=== PATIENT | male | born 1990 | race Caucasian/White ===

== ENCOUNTER 2016-12-09 09:12 | Emergency (ER) | payer OTHER ==
[2016-12-09] MEDS ORDERED: NS 0.9% 1000 ML* 1,000 ML IV ONE ×2 (09:30→12:39)
[2016-12-09] MEDS ORDERED: Ondansetron INJ* 2 MG/ML VIAL IV ONE ×2 (10:11→12:48)
[2016-12-09] MEDS ORDERED: Ketorolac INJ* 30 MG/ML 1 ML VIAL IV PUSH ONE (10:12)
--- NOTE | 2016-12-09 10:43 | ED ---
Abdominal Pain/Male - HPI Summary HPI Summary: 26 male presents with complaints of RLQ and RUQ abdominal pain that has been ongoing for the past couple of weeks however has really worsened over the past 3 days. Patient states the pain in RUQ is intermittent and sharp only lasting a few seconds. RLQ pain is a dull ache that is worse with certain position/ movement. Also complains of bright red blood in stool x 2 episodes. States he had some bright red blood when he wiped last night however a significant amount this morning 12/09/16 with bowel movement. States he has been having yellow mucus like stools for a while however just changed to yellow/green mucus-like with blood this am. Brought sample to [facility] who stated he should come to ED. Has not noticed certain foods making his symptoms worse. Has not eaten today. Used to have a high fast food diet ~ 1 year ago however has been eating healthy foods for the past year. Does have nausea has not vomited. Denies chest pain, difficulty breathing and radiation of pain. Has not recently had diarrhea or constipation. Patient denies taking any medications for the pain. Denies PMHx besides depression/anxiety which is currently is taking medication for. Denies urinary and genitalia symptoms. Denies fever however admits to chills. FHx of brother appendectomy and cousin cholecystectomy. PMHx significant for GERD/ Ulcer which he had an endoscopy for years ago. - History of Current Complaint Chief Complaint: EDAbdPain Stated Complaint: BLOOD IN STOOL/ABD PAIN/SENT BY [facility] Time Seen by Provider: 12/09/16 09:30 Hx Obtained From: Patient Onset/Duration: Gradual Onset, Lasting Days, Still Present, Worse Since Timing: Constant Severity Initially: Mild Severity Currently: Moderate Pain Intensity: 6 Pain Scale Used: 0-10 Numeric Location: Discrete At: RUQ, Discrete At: RLQ Radiates: No Character: Sharp - RUQ, Dull - ache RLQ, Cramping - RUQ intermittent Aggravating Factor(s): Movement Alleviating Factor(s): Nothing, Position Associated Signs And Symptoms: Positive: Blood in Stool, Nausea - Risk Factors Testicular Torsion: Negative Cardiac Risk Factors: Negative - Allergies/Home Medications Allergies/Adverse Reactions: Allergies Allergy/AdvReac Type Severity Reaction Status Date / Time Erythromycin [From Pediazole] Allergy Hives Verified 12/09/16 12:47 Sulfisoxazole Allergy Hives Verified 12/09/16 12:47 [From Pediazole] Home Medications: Home Medications ALPRAZolam TAB* [Xanax TAB*] 0.5 mg PO TID PRN 12/09/16 [History Confirmed 12/09] Bupropion XL* [Wellbutrin XL *] 150 mg PO DAILY 12/09/16 [History Confirmed ] Omeprazole CAP* [Prilosec CAP* 20 MG] 40 mg PO DAILY 12/09/16 [History Confirmed 12/09/16] PMH/Surg Hx/FS Hx/Imm Hx Endocrine/Hematology History: Denies: Hx Diabetes, Hx Thyroid Disease Cardiovascular History: Denies: Hx Hypertension, Hx Pacemaker/ICD, Other Cardiovascular Problems/ Disorders Respiratory History: Reports: Hx Asthma Denies: Hx Chronic Obstructive Pulmonary Disease (COPD) GI History: Reports: Hx Gastroesophageal Reflux Disease, Hx Ulcer - since jun 2013 Sensory History: Denies: Hx Hearing Aid Psychiatric History: Denies: Hx Panic Disorder - Surgical History Surgery Procedure, Year, and Place: none - Immunization History Date of Tetanus Vaccine: 2013 Date of Influenza Vaccine: none Immunizations Up to Date: Yes Infectious Disease History: Denies: Hx Clostridium Difficile, Hx Hepatitis, Hx Human Immunodeficiency Virus (HIV), Hx of Known/Suspected MRSA, Hx Shingles, Hx Tuberculosis, History Other Infectious Disease, Traveled Outside the [place] in Last 30 Days - Family History Known Family History: Positive: Hypertension Negative: Cardiac Disease, Diabetes - Social History Alcohol Use: None Alcohol Amount: none since May 17 2013 Substance Use Type: Reports: None Smoking Status (MU): Light Every Day Tobacco Smoker Type: Cigarettes, Smokeless Tobacco Amount Used/How Often: 1/2 PPD Review of Systems Positive: Chills Cardiovascular: Negative Respiratory: Negative Positive: Abdominal Pain, Nausea, Other - blood in stool Musculoskeletal: Negative Skin: Negative Neurological: Negative All Other Systems Reviewed And Are Negative: Yes Physical Exam Triage Information Reviewed: Yes Vital Signs On Initial Exam: Initial Vitals Temp Pulse Resp BP Pulse Ox 98.5 F 88 20 149/93 100 12/09/16 09:15 12/09/16 09:15 12/09/16 09:15 12/09/16 09:15 12/09/16 09:15 elevated BP noted. will re-check, taken upon arrival. patient also in pain and anxious. afebrile. Vital Signs Reviewed: Yes Appearance: Positive: No Pain Distress - unless moving or on palpation, then mild., Well-Nourished, Ill-Appearing - jaundice Skin: Positive: Warm, Skin Color Reflects Adequate Perfusion, Dry, Jaundiced. Negative: Cold, Numb, Soft, Mass @ Head/Face: Positive: Normal Head/Face Inspection Eyes: Positive: Normal, EOMI, EDUARDO, Conjunctiva Clear, Other: - no jaundice ENT: Positive: Normal ENT inspection, Hearing grossly normal, Pharynx normal, TMs normal - cerumen in left EAC. Negative: Muffled/hoarse voice Neck: Positive: Supple, Nontender, No Lymphadenopathy Respiratory/Lung Sounds: Positive: Clear to Auscultation, Breath Sounds Present. Negative: Rales, Rhonchi, Wheezes Cardiovascular: Positive: Normal, RRR, Pulses are Symmetrical in both Upper and Lower Extremities. Negative: Murmur, Rub Abdomen Description: Positive: No Organomegaly, Soft, Guarding, McBurney's Point Tenderness, Peritoneal Signs, Other: - positive psoas, rebound negative rovsing and murphys. skin exam on abdomen normal besides slightly yellow/ jaundice appearing. no previous surgeries or scars. tender on palpation both soft and deep on RLQ RUQ, more on RLQ. Left side and epigastric area non tender.. Negative: CVA Tenderness (R), CVA Tenderness (L), Distended, Pulsatile Mass Bowel Sounds: Positive: Present, Hypoactive Male Genital Exam: Positive: normal genitalia - per patient, deferred exam rectal done by Dr Rangel: normal, other - rectal exam and stool occult completed by Dr Rangel due to patient preference Musculoskeletal: Positive: Normal, Strength/ROM Intact Neurological: Positive: Normal, Sensory/Motor Intact, Alert, Oriented to Person Place, Time Psychiatric: Positive: Affect/Mood Appropriate, Anxious Diagnostics - Vital Signs Vital Signs Temp Pulse Resp BP Pulse Ox 12/09/16 09:15 98.5 F 88 20 149/93 100 - Laboratory Result Diagrams: 12/09/16 10:50 12/09/16 10:50 Lab Statement: Any lab studies that have been ordered have been reviewed, and results considered in the medical decision making process. - CT abd/pelvis CT Interpretation: No Acute Changes - NO EVIDENCE FOR ACUTE INTRA-ABDOMINAL ABNORMALITY. CT Interpretation Completed By: Radiologist - Ultrasound No standard instances Ultrasound Interpretation: No Acute Changes - gallbladder and appendix ultrasound: Appendix is not visualized. GALLBLADDER POLYP. NO BILIARY DUCT DILATATION IS NOTED. Ultrasound Interpretation Completed By: Radiologist Re-Evaluation - Re-Evaluation First Eval Re-Evaluation Time: 12:45 Change: Unchanged - pain was relieved for a short time with toradol however was returning and feels worse after having last bowel movement, will give additional pain management Second Eval Re-Evaluation Time: 15:30 Change: Unchanged - patient's pain was better however is starting to return. given one more 1mg dose of morphine. aware of lab results and imaging findings. spoke with Dr Josesito PATEL. Patient is in agreement and aware of findings. Ready to be d/c. Abdominal Pain Fem Course/Dx - Course Course Of Treatment: labs obtained. gallbladder and appendix ultrasound obtained. due to no significant findings and high suscpicion CT abdomen pelvis obtained. Patient's pain never went away completely however did improve with pain management. Given fluids. Continued to have abnormal bowel movement texture and colors throughout ED stay. Stool culture and occult blood obtained. Pending results. Occult blood negative. Due to unremarkable lab results, imaging findings unremarkable and negative however patient did still have some pain spoke with Dr Josesito PATEL who stated no emergent concern or etiology at this time. Pain management, fluids, rest and follow up in office. No sign or finding requiring further treatment at this time. Patient educated on possible diagnoses/etiologies. Comforted. Aware of worsening signs and symptoms to watch out for. Return if occur. Follow up pcp. - Diagnoses Differential Diagnosis/HQI/PQRI: Appendicitis, Constipation, Gall Bladder Disease, Ischemic Bowel, Pancreatitis, Peptic Ulcer Disease, Urinary Tract Infection, Other Provider Diagnoses: Abdominal pain - Provider Notifications Discussed Care Of Patient With: Dr Juan Carlos Murcia Time Discussed With Above Provider: 16:10 Instructed by Provider To: Have Pt Call For Appt. Discharge - Discharge Plan Condition: Stable Disposition: HOME Prescriptions: HYDROcodone/ACETAMIN 5-325 MG* [[place] 5-325 TAB*] 1 tab PO Q4H PRN #20 tab MDD 3 PRN Reason: Pain Patient Education Materials: Hydrocodone/Acetaminophen (By mouth), Acute Abdominal Pain (ED) Referrals: Carol Jackson NP [Primary Care Provider] - Additional Instructions: Take pain medication as directed only as needed. If symptoms worsen or new symptoms develop as we discussed such as increased blood, worsening pain, fever/chills, generalized feeling of illness return to ED immediately. Drink plenty of fluids, rest and follow up with GI either yours or the one affiliated with us below by the end of this week.
[2016-12-09 11:07] LABS: Hematocrit 50 % (42-52); Mean Corpuscular HGB Conc 32 g/dl (31-36); Mean Corpuscular Hemoglobin 28 pg (27-31); Mean Corpuscular Volume 86 fL (80-94); Mean Platelet Volume 9 um3 (7.4-10.4); Red Blood Count 5.82 10^6/ul (4.0-5.4); Red Cell Distribution Width 13 % (10.5-15); White Blood Count 7.6 10^3/ul (3.5-10.8)
[2016-12-09 11:23] LABS: Albumin 4.7 g/dL (3.2-5.2); BUN/Creatinine Ratio 15.3 (8-20); C Reactive Protein 2.77 mg/L (< 5.00); Calcium 9.8 mg/dL (8.6-10.3); EGFR African American 96.7 (>60); EGFR Non-African American 75.2 (>60); Globulin 2.9 g/dL (2-4); Potassium 4.1 mmol/L (3.5-5.0); Total Protein 7.6 g/dL (6.4-8.9)
--- NOTE | 2016-12-09 12:07 | RAD ---
Indication: Right upper quadrant pain. Real-time sonography of the right upper quadrant was performed. Liver is normal in size. No focal lesions or intrahepatic ductal dilatation is noted. The common duct measures 4 mm. The gallbladder demonstrates no definite gallstone. No pericholecystic fluid or wall thickening is noted. Likely gallbladder polyp is noted measuring 4 mm. Common duct measures 4 mm. The pancreas demonstrates no mass or pancreatic duct dilatation. Aorta and inferior vena cava are unremarkable. IMPRESSION: GALLBLADDER POLYP. NO BILIARY DUCT DILATATION IS NOTED.
--- NOTE | 2016-12-09 12:08 | RAD ---
Indication: Right lower quadrant pain. Graded compression sonography of the right lower quadrant was performed utilizing a high frequency linear transducer. There is no evidence of tubular fluid-filled structure to suggest appendicitis. The appendix is not visualized. IMPRESSION: Appendix is not visualized.
[2016-12-09] MEDS ORDERED: Iohexol 300* (CONTRAST) 10 ML SDV IV ONE (12:46)
[2016-12-09] MEDS ORDERED: Morphine INJ* 2 MG/ML 1 ML SYRINGE IV ONE ×2 (12:48→15:43)
[2016-12-09 14:37] LABS: Urine Bilirubin Negative (Negative); Urine Glucose Negative (Negative); Urine Nitrite Negative (Negative)
--- NOTE | 2016-12-09 15:15 | RAD ---
INDICATION: Right lower quadrant abdominal pain. COMPARISON: Comparison is made with a prior CT of the abdomen and pelvis from July 05, 2013. TECHNIQUE: A CT scan of the abdomen and pelvis was performed with intravenous and oral contrast following intravenous injection of 105 ml of Omnipaque 300 nonionic contrast. Contiguous axial sections were obtained from the lung bases through the symphysis pubis. Images were reconstructed in the coronal and sagittal planes. FINDINGS: The lung bases are clear. No pleural effusion is present. The liver and spleen are within normal limits in size without significant focal abnormality. No calcified gallstones or gallbladder wall thickening is seen. The pancreas appears to be within normal limits in size. The kidneys and adrenal glands are normal in size. No hydronephrosis is seen. No significant focal renal abnormality is seen. The aorta is normal in caliber and demonstrates homogeneous contrast opacification. No significant enlarged retroperitoneal lymph nodes are seen. The stomach, small and large bowel appear nondistended. The appendix is within normal limits. There is no evidence for diverticulitis or colitis. No free intraperitoneal air or fluid is seen. No significant focal osseous abnormality is seen. IMPRESSION: NO EVIDENCE FOR ACUTE INTRA-ABDOMINAL ABNORMALITY.
[2016-12-09 17:27] VITALS: BP 138/85
== END 2016-12-09 17:27 | disposition home or self-care (01) ==
LOC: ED 09:12
DX: R10.11 Right upper quadrant pain (principal); R11.0 Nausea; K92.1 Melena; F17.210 Nicotine dependence, cigarettes, uncomplicated
CPT/HCPCS: 36415; 74177; 76705; 80053; 81003; 82272; 83605; 83690; 85025; 86140; 87045; 87046; 87899; 99284; J1885; J2270; J2405; Q9967

== ENCOUNTER 2019-05-31 13:22 | Emergency (ER) | payer BC ==
--- OUTSIDE RECORDS SUMMARY | 2019-05-31 13:42 | XMS REPORT | Summary of Care ---
:1990 Author Organization [facility] Address [address] [address] Care Team Providers Name Role Phone Kayce Colon MD Primary Care Provider Reason for Referral Refer to Department Only (Routine) Status Reason Specialty Diagnoses / Referred By Referred To Procedures Contact Contact Pending Review Diagnoses Epigastric pain Sabine Ken NP [address] [address] Reason for Visit Reason Comments Chest Pain Pt. complaining of continued epigastric pain. Encounter Details Date Type Department Care Team Description 05/16/2019 Office Visit [place] [facility] Epigastric pain Gastroenterology/Hepa Sabine Robert NP (Primary Dx) tology 1 [facility] [address] [facility] [address] [address] [place], [place] [id number] Allergies Active Allergy Reactions Severity Noted Date Comments Erythromycin Respiratory Reaction 06/03/2016 Pediazole Respiratory Reaction 06/03/2016 documented as of this encounter (statuses as of 05/16/2019) Medications Medication Sig Dispensed Refills Start Date End Date Status ondansetron (ZOFRAN) 4 Take 4 mg by mouth 18 Tab 0 09/26/2016 Active MG Oral EVERY EIGHT HOURS TabIndications: NEEDED for Tonsillar hypertrophy nausea. Acetaminophen (TYLENOL Take 500 mg by 0 Active EXTRA STRENGTH mouth EVERY FOUR PO)Indications: Pain HOURS NEEDED. Indications: Pain ALBUTEROL SULFATE Take 2 Puffs by 0 Active INIndications: Dyspnea inhalation EVERY FOUR HOURS NEEDED. Indications: Difficulty Breathing amLodipine (NORVASC) 5 Take 1 Tab by 30 Tab 11 11/29/2018 Active MG Oral Tab mouth DAILY. Psyllium (METAMUCIL Take 1 Packet by 30 Each 3 01/13/2019 Active FIBER) 51.7 % Oral mouth DAILY. PackIndications: Diarrhea, unspecified type buPROPion XL Take 1 Tab by 30 Tab 11 01/24/2019 Active (WELLBUTRIN XL) 150 MG mouth DAILY. Oral TABLET SR 24 HR 24 hour tabletIndications: Anxiety and depression methocarbamol Take 1 Tab by 60 Tab 0 02/17/2019 Active (ROBAXIN) 500 MG Oral mouth THREE TIMES Tab DAILY. pantoprazole TAKE 1 TABLET BY 90 Tab 3 04/20/2019 Active (PROTONIX) 40 MG Oral MOUTH EVERY DAY Tab EC ALPRAZolam (XANAX) 0.5 Take 1 Tab by 90 Tab 0 04/25/2019 Active MG Oral mouth THREE TIMES TabIndications: DAILY NEEDED Anxiety and depression (anxiety). Max Daily Amount: 1.5 mg. Fill after 08/24/18 hyoscyamine (LEVBID) Take 0.375 mg by 60 Tab 0 05/16/2019 Active 0.375 MG Oral TABLET mouth EVERY TWELVE SR 12 HR HOURS. documented as of this encounter (statuses as of 05/16/2019) Active Problems Problem Noted Date Periumbilical abdominal pain 02/06/2019 Overview: Added automatically from request for surgery [id number] Umbilical hernia without obstruction and without gangrene 02/06/2019 Overview: Added automatically from request for surgery [id number] Upper abdominal pain 11/09/2018 Overview: Added automatically from request for surgery [id number] Symptomatic cholelithiasis 11/09/2018 Overview: Added automatically from request for surgery [id number] Benign hypertension 08/12/2018 Hx of Clostridium difficile infection 11/04/2017 Anxiety disorder 08/14/2016 Arthralgia of lower leg 05/26/2016 Gastric ulcer 05/17/2014 GERD (gastroesophageal reflux disease) documented as of this encounter (statuses as of 05/16/2019) Resolved Problems Problem Noted Date Resolved Date Sprain of ankle 05/26/2016 09/27/2017 Arthralgia of foot 05/26/2016 09/27/2017 documented as of this encounter (statuses as of 05/16/2019) Social History Tobacco Use Types Packs/Day Years Used Date Current Every Day Smoker Cigarettes 0.25 8 Smokeless Tobacco: Current User Chew Alcohol Use Drinks/Week oz/Week Comments No Social Isolation Answer Date Recorded In a typical week, how many times do you talk on the phone Once a week 2018 with family, friends, or neighbors? How often do you get together with friends or relatives? Once a week 2018 How often do you attend congregation or tenriism services? Never 08/03/2018 Do you belong to any clubs or organizations such as congregation No 08/03/2018 groups, unions, fraternal or athletic groups, or school groups? How often do you attend meetings of the clubs or Never 08/03/2018 organizations you belong to? Are you now , , , , never 08/03/2018 or living with a partner? Physical Activity Answer Date Recorded On average, how many days per week do you engage in moderate to 0 days 2018 strenuous exercise (like walking fast, running, jogging, dancing, swimming, biking, or other activities that cause a light or heavy sweat)? On average, how many minutes do you engage in exercise at this 0 min 2018 level? Stress Answer Date Recorded Do you feel stress - tense, restless, nervous, or anxious, or Very much 08/03 unable to sleep at night because your mind is troubled all the time - these days? Education Answer Date Recorded What is the highest level of school you have completed or 12th grade 2018 the highest degree you have received? Financial Resource Strain Answer Date Recorded How hard is it for you to pay for the very basics like Not hard at all 2018 food, housing, medical care, and heating? Intimate Partner Violence Answer Date Recorded Within the last year, have you been afraid of your partner or No 08/03/2018 ex-partner? Within the last year, have you been humiliated or emotionally No 08/03/2018 abused in other ways by your partner or ex-partner? Within the last year, have you been kicked, hit, slapped, or No 08/03/2018 otherwise physically hurt by your partner or ex-partner? Within the last year, have you been raped or forced to have any No 08/03/2018 kind of sexual activity by your partner or ex-partner? Transportation Needs Answer Date Recorded In the past 12 months, has lack of transportation kept you from No 08/03/2018 medical appointments or from getting medications? In the past 12 months, has lack of transportation kept you from No 08/03/2018 meetings, work, or getting things needed for daily living? Sex Assigned at Date Recorded Not on file Job Start Date Occupation Industry Not on file Not on file Not on file Travel History Travel Start Travel End No recent travel history available. documented as of this encounter Last Filed Vital Signs Vital Sign Reading Time Taken Comments Blood Pressure 128/90 05/16/2019 12:38 PM EST Pulse 66 05/16/2019 12:38 PM EST Temperature 36.7 05/16/2019 12:38 PM EST C (98 F) Respiratory Rate - - Oxygen Saturation - - Inhaled Oxygen Concentration - - Weight 79.4 kg (175 lb) 05/16/2019 12:38 PM EST Height 177.8 cm (5' 10") 05/16/2019 12:38 PM EST Body Mass Index 25.11 05/16/2019 12:38 PM EST documented in this encounter Patient Instructions Patient InstructionsSabine Ken NP - 05/16/2019 12:40 PM EST1. Labs today 2. Will trial an antispasmodic as discussed 3. Referral placed, will send this to [facility], expect them to contact you with scheduling 4. Follow up based on the above Thank you for choosing the [facility] for your needs today! -Sabine Ken N.P. , Please call if you need to cancel or change your appt. time. Thank you for choosing [facility] for your health care needs, and for consulting with [facility] today. You may receive a survey following this visit, or after an upcoming hospital stay. As easy as it is to feel overloaded with surveys, we are required to send them out randomly and they do provide important feedback so that we may serve your needs in the best way. Please do take the few minutes required to complete the survey if you receive one. We get them too, after seeing the doctor, and they only take a few minutes to complete. documented in this encounter Progress Notes Sabine Ken NP - 05/16/2019 12:40 PM EST PATIENT: Jaspal De La Rosa : 1990 DATE OF SERVICE: 05/16/2019 REFERRING PRACTITIONER: Self-Referred PRIMARY CARE PROVIDER: Kayce Colon CHIEF COMPLAINT: Chief Complaint Patient presents with Chest Pain Pt. complaining of continued epigastric pain. Subjective HISTORY OF PRESENT ILLNESS: Jaspal De La Rosa is a 28-y.o. male who presents for a follow-up with abdominal pain. He reports periumbilical and epigastric pain which he describes as a dull ache to a "squeeze" on an off over the past several months, after his cholecystectomy 11/10/2018. Has known GERD, doing well on Pantoprazole once daily. He had an EGD 12/[address] abd 01/10/2019 which was without any acute findings. Lab Results Component Value Date NA 140 03/16/2019 K 3.6 03/16/2019 CL 102 03/16/2019 CO2 25 03/16/2019 GLUCOSE 120 (H) 03/16/2019 BUN 11 03/16/2019 CREATININE 1.1 03/16/2019 CALCIUM 10.0 03/16/2019 TP 8.0 03/16/2019 ALBUMIN 4.6 03/16/2019 AST 24 03/16/2019 ALT 27 03/16/2019 ALK 62 03/16/2019 TBILI 0.9 03/16/2019 EGFR >60 03/16/2019 Has found relief from pain medications. Denies heartburn, dysphagia, fatigue, nausea, vomiting, melena, hamatemesis, hematochezia, constipation, diarrhea, jaundice, fevers, chills, night sweats, weight loss, easy bruising, chest pain, shortness of breath, dysuria, hematuria , pyuria, joint pains, acholic stools, dark urine or systemic pruritis. Past Medical History: Diagnosis Date Anxiety dx age 20 Asthma as child Depression Gastric ulcer 2014 GERD (gastroesophageal reflux disease) Hx of Clostridium difficile infection Hypertension Mental disorder severe anxiety with panic attacks Past Surgical History: Procedure Laterality Date EGD 2014 HERNIORRHAPHY, UMBILICAL N/A 02/08/2019 Procedure: iINCISIONAL HERNIA REPAIR WITH MESH; Surgeon: Jose Ramon Barahona MD; Location: [facility] MAIN OR LAPAROSCOPIC CHOLECYSTECTOMY N/A 11/10/2018 Procedure: LAPAROSCOPIC CHOLECYSTECTOMY; Surgeon: Fernando Collado MD; Location: MAIN OR TX EXCIS SPERMATOCELE Right 10/19/2017 Procedure: SPERMATOCELECTOMY; Surgeon: Lon Smith MD; Location : MAIN OR Family History Problem Relation Age of Onset Thyroid Mother Arthritis Mother No Known Problems Sister GI Brother Psychiatry Brother No Known Problems Brother No Known Problems Brother Current Outpatient Medications Medication Sig Acetaminophen (TYLENOL EXTRA STRENGTH PO) Take 500 mg by mouth EVERY FOUR HOURS NEEDED. Indications: Pain ALBUTEROL SULFATE IN Take 2 Puffs by inhalation EVERY FOUR HOURS NEEDED. Indications: Difficulty Breathing ALPRAZolam (XANAX) 0.5 MG Oral Tab Take 1 Tab by mouth THREE TIMES DAILY NEEDED (anxiety).Max Daily Amount: 1.5 mg. Fill after 08/24/18 amLodipine (NORVASC) 5 MG Oral Tab Take 1 Tab by mouth DAILY. buPROPion XL (WELLBUTRIN XL) 150 MG Oral TABLET SR 24 HR 24 hour tablet Take 1 Tab by mouth DAILY. hyoscyamine (LEVBID) 0.375 MG Oral TABLET SR 12 HR Take 0.375 mg by mouth EVERY TWELVE HOURS. methocarbamol (ROBAXIN) 500 MG Oral Tab Take 1 Tab by mouth THREE TIMES DAILY. ondansetron (ZOFRAN) 4 MG Oral Tab Take 4 mg by mouth EVERY EIGHT HOURS NEEDED for nausea. pantoprazole (PROTONIX) 40 MG Oral Tab EC TAKE 1 TABLET BY MOUTH EVERY DAY Psyllium (METAMUCIL FIBER) 51.7 % Oral Pack Take 1 Packet by mouth DAILY. No current facility-administered medications for this visit. Allergies Allergen Reactions Erythromycin Respiratory Reaction Pediazole Respiratory Reaction Social History Socioeconomic History Marital status: Spouse name: darryn Number of children: 0 Years of education: 12 Highest education level: 12th grade Occupational History Not on file Social Needs Financial resource strain: Not hard at all Food insecurity Worry: Not on file Inability: Not on file Transportation needs Medical: No Non-medical: No Tobacco Use Smoking status: Current Every Day Smoker Packs/day: 0.25 Years: 8.00 Pack years: 2.00 Types: Cigarettes Smokeless tobacco: Current User Types: Chew Substance and Sexual Activity Alcohol use: No Drug use: Never Sexual activity: Yes Partners: Female control/protection: Condom Lifestyle Physical activity Days per week: 0 days Minutes per session: 0 min Stress: Very much Relationships Social connections Talks on phone: Once a week Gets together: Once a week Attends tenriism service: Never Active member of club or organization: No Attends meetings of clubs or organizations: Never Relationship status: Intimate partner violence Fear of current or ex partner: No Emotionally abused: No Physically abused: No Forced sexual activity: No Other Topics Concern Back Care Not Asked Bike Helmet Not Asked Blood Transfusions Not Asked Caffeine Concern Not Asked Exercise Yes Hobby Hazards Not Asked International Travel Not Asked Service Not Asked Occupational Exposure Not Asked Seat Belt Not Asked Self-Exams Not Asked Sleep Concern Not Asked Special Diet Not Asked Stress Concern Not Asked Weight Concern Not Asked Social History Narrative Lives in [place]. Works self employed construction. REVIEW OF SYSTEMS: All remaining review of systems was negative except for as noted in the history of present illness/subjective. Objective PHYSICAL EXAMINATION: VITALS: BP 128/90 | Pulse 66 | Temp 98 F (36.7 C) | Ht 5' 10" ( 1.778 m) | Wt 175 lb (79.4 kg) | BMI 25.11 kg/m Body mass index is 25.11 kg/m. GENERAL: alert, oriented, no acute distress. HEENT: No scleral icterus, MMM Psych: Affect normal Neck: no lymphadenopathy LUNGS: clear to auscultation bilaterally. HEART: regular rhythm, no murmurs, no gallops, no rubs. ABDOMEN: general exam: soft, non-tender, non-distended, without masses or organomegaly, normal active bowel sounds, Dennison's sign negative. Extrmities: no edema Skin: clear Neuro: gait normal, a&o x 3 RECTAL: exam deferred. IMPRESSION: ICD-9-CM ICD-10-CM 1. Epigastric pain 789.06 R10.13 COMPREHENSIVE METABOLIC PANEL AMYLASE LIPASE REFER TO GI He is concerned for possible Sphincter of Oddi, will refer to [facility] for evaluation of this. Will trial Hyoscyamine today. Plan PLAN: Patient Instructions 1. Labs today 2. Will trial an antispasmodic as discussed 3. Referral placed, will send this to [facility], expect them to contact you with scheduling 4. Follow up based on the above Thank you for choosing the [facility] for your needs today! -Sabine Ken N.P. , Please call if you need to cancel or change your appt. time. Thank you for choosing [facility] for your health care needs, and for consulting with [facility] today. You may receive a survey following this visit, or after an upcoming hospital stay. As easy as it is to feel overloaded with surveys, we are required to send them out randomly and they do provide important feedback so that we may serve your needs in the best way. Please do take the few minutes required to complete the survey if you receive one. We get them too, after seeing the doctor, and they only take a few minutes to complete. Author: Sabine Ken NP 05/16/2019 12:54 documented in this encounter Plan of Treatment Date Type Specialty Care Team Description 06/08/2019 Office Visit Family Practice Kayce Colon MD [address] [place] [address] [phone] Name Type Priority Associated Diagnoses Order Schedule COMPREHENSIVE METABOLIC Lab Routine Epigastric pain Expected: 05/16/2019 PANEL (Approximate), Expires: 05/16/2020 AMYLASE Lab Routine Epigastric pain Expected: 05/16/2019 (Approximate), Expires: 05/30/2019 LIPASE Lab Routine Epigastric pain Expected: 05/16/2019 (Approximate), Expires: 05/30/2019 Name Type Priority Associated Diagnoses Order Schedule REFER TO GI Referral Routine Epigastric pain Expected: 05/16/2019, Expires: 05/16/2020 Health Maintenance Due Date Last Done Comments PNEUMOCOCCAL 0-64 YRS (1 of 1 - 11/16/1997 PPSV23) DTaP/Tdap/Td Vaccines (1 - Tdap) 11/16/2002 DEPRESSION SCREENING 01/14/2020 01/13/2019 INFLUENZA VACCINE (#1) 2020 Postponed from 01/15/2019 (Patient refused) HEPATITIS A IMMUNIZATION SERIES Aged Out No longer eligible based on patient's age to complete this topic HPV IMMUNIZATION SERIES Aged Out No longer eligible based on patient's age to complete this topic MENINGOCOCCAL VACCINE IMM Aged Out No longer eligible based on patient's age to complete this topic documented as of this encounter Goals Goal Patient Goal Associated Recent Patient-Stated? Author Type Problems Progress Blood Pressure Blood Pressure 128/90 No Renetta, < 140/90 (05/16/2019 CAMILA Medina 12:38 PM EST) Note: This is an individualized treatment (blood pressure) goal for Jaspal Romero: Displayed above (on the left) is your goal for blood pressure control. Your most recent blood pressure is also shown above, on the right. You should try to achieve blood pressures that are lower than your goal listed above (on the left). Depression screen (PHQ-9) total score < 5 Depression No Carmelina Melgar PA-C Note: This is an individualized treatment (depression) goal for Jaspal Romero: Displayed above is your goal for a depression screening (PHQ-9) score that would indicate good control of your depression. Keep a regular sleep schedule Lifestyle No Carmelina Melgar PA-C Note: This is an individualized lifestyle goal for Jaspal Romero: Please maintain a regular sleep schedule. This may help with some symptoms of depression. Take all prescribed medications as Self-management No Carol Jackson FNP directed Note: This is an individualized self-management goal for Jaspal Romero: Please take all prescribed medications as directed. 1. Do not skip doses. If you cannot afford your medications, talk with your doctor. 2. Use a pill reminder system such as a pill box if needed. Your pharmacist can help you with this. 3. Contact your Pharmacy 5 days before your medication runs out. If you cannot take your medications for any reasons, talk with your doctor. 4. Please bring all of your medication bottles and inhalers (or a list of all your medications/inhalers) with you to every visit. Potential barriers to meeting all of your care plan goals will continue to be addressed on an ongoing basis. documented as of this encounter Implants Implanted Type Area Engine Head Repairer Device Identifier Shelf Expiration Model / Date Serial / Lot Ventralex St Mesh 4.3 X 4.3 - [id number] dondeEsta™. 10/11/2020 [id number] / Implanted: Qty: 1 on 02/08/2019 by Jose Ramon Barahona MD at [facility] / [id number] documented as of this encounter Results Not on filedocumented in this encounter Visit Diagnoses Diagnosis Epigastric pain Abdominal pain, epigastric documented in this encounter Insurance Payer Benefit Plan / Subscriber ID Effective Dates Phone Address Type Group [employer] xxxxxxxxxxxx 2017-Present [employer] (Home) [place] [phone] [place], [place] (Work) [id number] documented as of this encounter Advance Directives Code Status Date Activated Date Inactivated Comments Full Code 10/19/2017 1:30 PM 10/19/2017 5:18 PM Does patient have decision making capacity? Yes
--- OUTSIDE RECORDS SUMMARY | 2019-05-31 13:42 | XMS REPORT | Summary of Care ---
:1990 Author Organization [facility] Address [address] [place] [address] Care Team Providers Name Role Phone Kayce Colon MD Primary Care Provider Reason for Referral MRI/CAT/PET Scan (Routine) Status Reason Specialty Diagnoses / Referred By Referred To Procedures Contact Contact Pending Review Diagnoses RUQ pain [place], Procedures US ABDOMEN LIMITED MEERA Claudio [address] [place] [address] Reason for Visit Reason Comments Check Up dizzy, feels like there is a balloon under R rib, fatiuged x1 week now experiencing shooting pains in R side Encounter Details Date Type Department Care Team Description 05/30/2019 Office Visit [place] [facility] RUQ pain (Primary Dx) Practice [facility] [address] [place] [address] [place] [address] [phone] Allergies Active Allergy Reactions Severity Noted Date Comments Erythromycin Respiratory Reaction 06/03/2016 Pediazole Respiratory Reaction 06/03/2016 documented as of this encounter (statuses as of 05/30/2019) Medications Medication Sig Dispensed Refills Start Date [...] MG Oral MOUTH EVERY DAY Tab EC hyoscyamine (LEVBID) Take 0.375 mg by 60 Tab 0 05/16/2019 Active 0.375 MG Oral TABLET mouth EVERY TWELVE SR 12 HR HOURS. ALPRAZolam (XANAX) 0.5 Take 1 Tab by 90 Tab 0 05/25/2019 Active MG Oral mouth THREE TIMES TabIndications: DAILY NEEDED Anxiety and depression (anxiety). Max Daily Amount: 1.5 mg. Fill after 08/24/18 documented as of this encounter (statuses as of 05/30/2019) Active Problems Problem Noted Date Periumbilical abdominal pain 02/06/2019 Overview: Added automatically from request for surgery [id number] Umbilical hernia without obstruction and without gangrene 02/06/2019 Overview: Added automatically from request for surgery [id number] Upper abdominal pain 11/09/2018 Overview: Added automatically from request for surgery [id number] Symptomatic cholelithiasis 11/09/2018 Overview: Added automatically from request for surgery [id number] Benign hypertension 08/12/2018 Hx of Clostridium difficile infection 11/04/2017 Anxiety disorder 08/14/2016 Arthralgia of lower leg 05/26/2016 Gastric ulcer 05/17/2014 GERD (gastroesophageal reflux disease) documented as of this encounter (statuses as of 05/30/2019) Resolved Problems Problem Noted Date Resolved Date Sprain of ankle 05/26/2016 09/27/2017 Arthralgia of foot 05/26/2016 09/27/2017 documented as of this encounter (statuses as of 05/30/2019) Social History Tobacco Use Types Packs/Day Years [...] week 2018 How often do you attend restorationist or bahai services? Never 08/03/2018 Do you belong to any clubs or organizations such as restorationist No 08/03/2018 groups, unions, [employer] [place] or athletic groups, or school groups? How [...] Sign Reading Time Taken Comments Blood Pressure 132/84 05/30/2019 2:06 PM EST Pulse 104 05/30/2019 2:06 PM EST Temperature 37.7 05/30/2019 2:06 PM EST C (99.8 F) Respiratory Rate - - Oxygen Saturation 98% 05/30/2019 2:06 PM EST Inhaled Oxygen Concentration - - Weight 80.3 kg (177 lb) 05/30/2019 2:06 PM EST Height 177.8 cm (5' 10") 05/30/2019 2:06 PM EST Body Mass Index 25.4 05/30/2019 2:06 PM EST documented in this encounter Patient Instructions Patient InstructionsNoShanon corcoran NP - 05/30/2019 2:00 PM ESTDo blood work today. Do abdominal ultrasound today - at 3:30pm. I will let you know results and what follow up is required. documented in this encounter Progress Notes Shanon Balderrama NP - 05/30/2019 2:00 PM EST PATIENT: Jaspal De La Rosa : 1990 DATE OF SERVICE: 05/30/2019 CHIEF COMPLAINT: Chief Complaint Patient presents with Check Up dizzy, feels like there is a balloon under R rib, fatiuged x1 week now experiencing shooting painsin R side Subjective HISTORY OF PRESENT ILLNESS: Jaspal De La Rosa is a 28-y.o. male. HPI Tired and dizzy for one week. Slept for 3 days straight. Tried to work and got dizzy and diaphoretic. Feels a "balloon" in RUQ, radiating down side of abdomen a bit and into right side of back, getsstabbing pains in the right side that come and go. Getting progressively worse. This also started a week ago. He was started on an antispasmodic, Hyoscyamine, at visit with [facility] on 05/16/19- he started feeling bad about 2 days after starting this medication. He stopped taking it right after the first day taking , but symptoms have continued. He goes to [facility] on 06/07/19 for evaluation of Sphincter of Oddi. Had hernia repair with Dr. Barahona on January 2019. Hot/cold chills for a few minutes at a time, checks temp but his thermometer is not accurate (last reading was 95), Not taking any tylenol or ibuprofen. Urination is more robson normal but also drinking a lot of water. No hematuria. But it looks dark. No pain with urination. BM's are normal, no blood in stool. Back pain right side. One spot of numbness on right side, and also feels a "cold spot" on right side compared to the left side. Nausea, no appetite, no vomiting. Past Medical History: Diagnosis Date Anxiety dx age 20 Asthma as child Depression Gastric ulcer 2014 GERD (gastroesophageal reflux disease) Hx of Clostridium difficile infection Hypertension Mental disorder severe anxiety with panic attacks Family History Problem Relation Age of Onset [...] History Socioeconomic History Marital status: Spouse name: sharmaine Number of children: 0 Years of education: [...] week Gets together: Once a week Attends bahai service: Never Active member of club or [...] Not Asked Social History Narrative Lives in [place]. Works self employed construction. REVIEW OF SYSTEMS: Review of Systems Constitutional: Positive for chills and malaise/fatigue. Negative for fever. Cardiovascular: Negative for chest pain and palpitations. Gastrointestinal: Positive for abdominal pain and nausea. Negative for blood in stool, constipation,diarrhea and vomiting. Genitourinary: Negative for dysuria, frequency and urgency. More urine than normal. Musculoskeletal: Negative for back pain. Neurological: Positive for dizziness. Negative for headaches. Objective PHYSICAL EXAM: VITALS: BP 132/84 (BP Location: Left arm, Patient Position: Sitting) | Pulse 104 | Temp 99.8 F (37.7 C) (Tympanic) | Ht 5' 10" (1.778 m) | Wt 177 lb (80.3 kg) | SpO2 98% | BMI 25.40 kg/m Body mass index is 25.4 kg/m . Physical Exam Vitals signs and nursing note reviewed. Constitutional: General: He is not in acute distress. Appearance: Normal appearance. He is well-developed. He is not ill-appearing. Cardiovascular: Rate and Rhythm: Normal rate and regular rhythm. Heart sounds: Normal heart sounds. No murmur. No friction rub. No gallop. Pulmonary: Effort: Pulmonary effort is normal. No respiratory distress. Breath sounds: Normal breath sounds. Abdominal: General: Abdomen is flat. Bowel sounds are normal. There is no distension. Palpations: Abdomen is soft. Abdomen is not rigid. There is no hepatomegaly, splenomegaly or mass. Tenderness: There is abdominal tenderness in the right upper quadrant. There is no right CVA tenderness, left CVA tenderness, guarding or rebound. Negative signs include Dennison's sign and McBurney'ssign. Hernia: No hernia is present. Comments: Several well healed surgical scars Lymphadenopathy: Head: Right side of head: No submental, submandibular, tonsillar, preauricular or posterior auricular adenopathy. Left side of head: No submental, submandibular, tonsillar, preauricular or posterior auricular adenopathy. Cervical: No cervical adenopathy. Upper Body: Right upper body: No supraclavicular adenopathy. Left upper body: No supraclavicular adenopathy. Neurological: General: No focal deficit present. Mental Status: He is alert. Psychiatric: Behavior: Behavior is cooperative. Results for orders placed or performed in visit on 05/30/19 URINE DIP MANUAL (AMB POCT) Result Value Ref Range URINE GLUCOSE (POCT) Negative Negative mg/dl URINE BILIRUBIN (POCT) Negative Negative Urine Ketones (POCT) Negative Negative URINE SPECIFIC GRAVITY (POCT) 1.005 1.005 - 1.030 URINE BLOOD (POCT) Negative Negative URINE PH (POCT) 7.5 5.0 - 8.0 URINE PROTEIN (POCT) Negative Negative mg/dl URINE UROBILINOGEN (POCT) 0.2 0.2 - 1.0 mg/dl URINE NITRITES (POCT) Negative Negative URINE LEUKOCYTES (POCT) Negative Negative Cells/uL ASSESSMENT / IMPRESSION: ICD-9-CM ICD-10-CM 1. RUQ pain 789.01 R10.11 URINE DIP MANUAL (AMB POCT) COMPREHENSIVE METABOLIC PANEL CBC WITH DIFFERENTIAL US ABDOMEN LIMITED CBC WITH DIFFERENTIAL COMPREHENSIVE METABOLIC PANEL Plan 1. RUQ pain -Urine dip today negative. -Differential includes kidney - no gallbladder, no tenderness over liver. -Will do labs and ultrasound. - URINE DIP MANUAL (AMB POCT) - COMPREHENSIVE METABOLIC PANEL; Future - CBC WITH DIFFERENTIAL; Future - US ABDOMEN LIMITED; Future - CBC WITH DIFFERENTIAL - COMPREHENSIVE METABOLIC PANEL Author: Shanon Balderrama NP 05/30/2019 14:39 documented in this encounter Plan of Treatment Date Type Specialty Care Team Description 05/30/2019 Ancillary Procedure Radiology 06/08/2019 Office Visit Family [facility] Kayce Colon MD [address] [place] [address] [phone] Name Type Priority Associated Diagnoses Date/Time COMPREHENSIVE METABOLIC Lab Routine RUQ pain 05/30/2019 2:41 PM EST PANEL CBC WITH DIFFERENTIAL Lab Routine RUQ pain 05/30/2019 2:41 PM EST Name Type Priority Associated Diagnoses Order Schedule COMPREHENSIVE METABOLIC Lab Routine RUQ pain Expected: 05/30/2019 PANEL (Approximate), Expires: 05/30/2020 CBC WITH DIFFERENTIAL Lab Routine RUQ pain Expected: 05/30/2019 (Approximate), Expires: 05/30/2020 US ABDOMEN LIMITED Imaging Routine RUQ pain Expected: 05/30/2019, Expires: 05/29/2020 Health Maintenance Due Date Last Done Comments [...] Type Problems Progress Blood Pressure Blood Pressure 132/84 No Renetta, < 140/90 (05/30/2019 CAMILA Medina 2:06 PM EST) Note: This is an individualized [...] of this encounter Implants Implanted Type Area Aqueduct And Reservoir Keeper Device Identifier Shelf Expiration Model / Date Serial / Lot Ventralex St Mesh 4.3 X 4.3 - [id number] 10/11/2020 [id number] / Implanted: Qty: 1 on 02/08/2019 by Jose Ramon Barahona MD at [facility] / [id number] documented as of this encounter Procedures Procedure Name Priority Date/Time Associated Diagnosis Comments URINE DIP MANUAL Routine 05/30/2019 2:35 PM RUQ pain Results for this (AMB POCT) EST procedure are in the results section. documented in this encounter Results URINE DIP MANUAL (AMB POCT) (05/30/2019 2:35 PM EST) URINE GLUCOSE (POCT) Negative Negative mg/dl [facility] POCT URINE BILIRUBIN Negative Negative [facility] [place] (POCT) POCT Urine Ketones (POCT) Negative Negative [facility] POCT URINE SPECIFIC 1.005 1.005 - 1.030 [facility] GRAVITY (POCT) POCT URINE BLOOD (POCT) Negative Negative [facility] POCT URINE PH (POCT) 7.5 5.0 - 8.0 [facility] POCT URINE PROTEIN (POCT) Negative Negative mg/dl [facility] POCT URINE UROBILINOGEN 0.2 0.2 - 1.0 mg/dl [facility] (POCT) POCT URINE NITRITES (POCT) Negative Negative [facility] POCT URINE LEUKOCYTES Negative Negative Cells/uL [facility] (POCT) POCT Specimen Urine - Urine specimen (specimen) Performing Organization Address City/State/Zipcode Phone Number [facility] [address] [place] [address] documented in this encounter Visit Diagnoses Diagnosis RUQ pain Abdominal pain, right upper quadrant documented in this encounter Insurance Payer Benefit Plan / Subscriber ID Effective Dates Phone Address Type Group [employer] xxxxxxxxxxxx 2017-Present [employer] (Home) [employer] [phone] [place], [place] (Work) [id number] documented as of this encounter Advance Directives Code Status Date Activated Date Inactivated Comments Full Code 10/19/2017 1:30 PM 10/19/2017 5:18 PM Does patient have decision making capacity? Yes
[2019-05-31] MEDS ORDERED: Ketorolac INJ* 30 MG/ML 1 ML VIAL IV PUSH ONE (16:31)
[2019-05-31] MEDS ORDERED: NS 0.9% 1000 ML** 1,000 ML IV ONE (16:31)
[2019-05-31 16:40] LABS: ABS Eosinophils 0.1 10^3/ul (0-0.6); ABS Lymphocytes 1.7 10^3/ul (1.0-4.8); ABS Monocytes 0.4 10^3/ul (0-0.8); ABS Neutrophils 3.7 10^3/ul (1.5-7.7); Eosinophil % 1.1 %; Hematocrit 46 % (42-52); Hemoglobin 15.4 g/dL (14.0-18.0); Lymphocyte % 28.4 %; Mean Corpuscular HGB Conc 34 g/dL (31-36); Mean Corpuscular Hemoglobin 29 pg (27-31); Mean Corpuscular Volume 85 fL (80-94); Mean Platelet Volume 8.1 fL (7.4-10.4); Nucleated Red Blood Cells % 0.1; Platelet Count 205 10^3/uL (150-450); Red Blood Count 5.42 10^6 /uL (4.18-5.48); Red Cell Distribution Width 13 % (10-15); White Blood Count 5.9 10^3/uL (3.5-10.8)
--- NOTE | 2019-05-31 16:48 | ED ---
Abdominal Pain/Male - HPI Summary HPI Summary: 28 y/o male presented to [facility] stating that after gallbladder surgery in October, he started having bad epigastric pains and RUQ pain, then he had hernia and had that repaired, Pt states about 2 weeks ago he started having pressure and stabbing pain In RUQ. Pt was seen at [facility] yesterday, had ultrasound and Tech told him it looked like he had a tear in his liver. - History of Current Complaint Chief Complaint: EDAbdPain Stated Complaint: RIGHT SIDE PAIN, FEVER PER PT Time Seen by Provider: 05/31/19 16:14 Hx Obtained From: Patient Onset/Duration: Still Present Timing: Lasting Weeks Severity Currently: Moderate Pain Intensity: 6 Pain Scale Used: 0-10 Numeric Location: Discrete At: RUQ, Epigastric Character: Sharp Alleviating Factor(s): Nothing Associated Signs And Symptoms: Positive: Negative - Allergies/Home Medications Allergies/Adverse Reactions: Allergies Allergy/AdvReac Type Severity Reaction Status Date / Time erythromycin base Allergy Hives Verified 05/31/19 13:34 sulfisoxazole Allergy Hives Verified 05/31/19 13:34 [From Pediazole] Home Medications: Home Medications ALPRAZolam TAB* [Xanax TAB*] 0.5 mg PO TID PRN 05/31/19 [History Confirmed 05/31] Acetaminophen [Tylenol Extra Strength] 500 mg PO Q6HR PRN 05/31/19 [History Confirmed 05/31/19] Hyoscyamine ER (NF) [Levbid (NF)] 0.375 mg PO Q12HR 05/31/19 [History Confirmed 05/31/19] Pantoprazole TAB * [Protonix TAB*] 40 mg PO DAILY 05/31/19 [History Confirmed ] PMH/Surg Hx/FS Hx/Imm Hx Endocrine/Hematology History: Denies: Hx Diabetes, Hx Thyroid Disease Cardiovascular History: Denies: Hx Hypertension, Hx Pacemaker/ICD, Other Cardiovascular Problems/ Disorders Respiratory History: Reports: Hx Asthma Denies: Hx Chronic Obstructive Pulmonary Disease (COPD) GI History: Reports: Hx Gastroesophageal Reflux Disease, Hx Ulcer - since jun 2013 Sensory History: Denies: Hx Hearing Aid Psychiatric History: Denies: Hx Panic Disorder - Surgical History Surgery Procedure, Year, and Place: none - Immunization History Date of Tetanus Vaccine: 2013 Date of Influenza Vaccine: none Infectious Disease History: No Infectious Disease History: Denies: Hx Clostridium Difficile, Hx Hepatitis, Hx Human Immunodeficiency Virus (HIV), Hx of Known/Suspected MRSA, Hx Shingles, Hx Tuberculosis, History Other Infectious Disease, Traveled Outside the [place] in Last 30 Days - Family History Known Family History: Positive: Hypertension Negative: Cardiac Disease, Diabetes - Social History Alcohol Use: None Alcohol Amount: none since May 17 2013 Substance Use Type: Reports: None Smoking Status (MU): Light Every Day Tobacco Smoker Type: Cigarettes, Smokeless Tobacco Amount Used/How Often: 1/2 PPD Review of Systems Negative: Fever - vitals show temp at 98.4F Positive: Abdominal Pain - RUQ, epigastric All Other Systems Reviewed And Are Negative: Yes Physical Exam - Summary Physical Exam Summary: Constitutional: Well-developed, Well-nourished, Alert. (-) Distressed Skin: Warm, Dry HENT: Normocephalic; Atraumatic Eyes: Conjunctiva normal Neck: Musculoskeletal ROM normal neck. (-) JVD, (-) Stridor, (-) Tracheal deviation Cardio: Rhythm regular, rate normal, Heart sounds normal; Intact distal pulses; The pedal pulses are 2+ and symmetric. Radial pulses are 2+ and symmetric. (-) Murmur Pulmonary/Chest wall: Effort normal. (-) Respiratory distress, (-) Wheezes, (-) Rales Abd: Soft, (+) tenderness over distal aspect of liver, (-) Distension, (-) Guarding, (-) Rebound Musculoskeletal: (-) Edema Lymph: (-) Cervical adenopathy Neuro: Alert, Oriented x3 Psych: Mood and affect Normal Triage Information Reviewed: Yes Vital Signs On Initial Exam: Initial Vitals Temp Pulse Resp BP Pulse Ox 98.4 F 90 14 170/104 98 05/31/19 13:27 05/31/19 13:27 05/31/19 13:27 05/31/19 13:27 05/31/19 13:27 Vital Signs Reviewed: Yes Procedures - Sedation Patient Received Moderate/Deep Sedation with Procedure: No Diagnostics - Vital Signs Vital Signs Temp Pulse Resp BP Pulse Ox 05/31/19 13:27 98.4 F 90 14 170/104 98 - Laboratory Lab Results: Lab Results 05/31/19 Range/Units 16:33 WBC 5.9 (3.5-10.8) 10^3/uL RBC 5.42 (4.18-5.48) 10^6 /uL Hgb 15.4 (14.0-18.0) g/dL Hct 46 (42-52) % MCV 85 (80-94) fL MCH 29 (27-31) pg MCHC 34 (31-36) g/dL RDW 13 (10-15) % Plt Count 205 (150-450) 10^3/uL MPV 8.1 (7.4-10.4) fL Neut % (Auto) 62.7 % Lymph % (Auto) 28.4 % [place] % (Auto) 7.2 % Eos % (Auto) 1.1 % Baso % (Auto) 0.6 % Absolute Neuts (auto) 3.7 (1.5-7.7) 10^3/ul Absolute Lymphs (auto) 1.7 (1.0-4.8) 10^3/ul Absolute Monos (auto) 0.4 (0-0.8) 10^3/ul Absolute Eos (auto) 0.1 (0-0.6) 10^3/ul Absolute Basos (auto) 0.0 (0-0.2) 10^3/ul Absolute Nucleated RBC 0.0 10^3/ul Nucleated RBC % 0.1 Result Diagrams: 05/31/19 16:33 05/31/19 16:33 Lab Statement: Any lab studies that have been ordered have been reviewed, and results considered in the medical decision making process. - Ultrasound abdomen Ultrasound Interpretation Completed By: Radiologist Summary of Ultrasound Findings: IMPRESSION: Patient is status post cholecystectomy. No biliary duct dilatation is noted. This report was reviewed by the ED physician. Abdominal Pain Male Course/Dx - Course Course Of Treatment: 28 y/o male presented to [facility] stating that after gallbladder surgery in October, he started having bad epigastric pains and RUQ pain , then he had hernia and had that repaired, Pt states about 2 weeks ago he started having pressure and stabbing pain In RUQ. Pt was seen at [facility] yesterday, had ultrasound and Tech told him it looked like he had a tear in his liver. Exam found tenderness over the distal aspect of the liver. Bloodwork showed creatinine H and lipase L. US abdomen showed patient is status post cholecystectomy. No biliary duct dilatation is noted. Pt was given 30mg IV Toradol and 1L IV NaCl. Pt was diagnosed with abdominal pain and discharged to home. - Diagnoses Provider Diagnoses: Abdominal pain Discharge ED - Sign-Out/Discharge Documenting (check all that apply): Patient Departure - dc - Discharge Plan Condition: Stable Disposition: HOME Patient Education Materials: Abdominal Pain (ED) Referrals: Kayce Colon MD [Primary Care Provider] - Additional Instructions: Follow up with your GI appointment next week. If you experience new or worsening symptoms please return to the ER. - Billing Disposition and Condition Condition: STABLE Disposition: Home - Attestation Statements Document Initiated by Sherice: Yes Documenting Scribe: Santos Mcelroy Provider For Whom Sherice is Documenting (Include Credential): See Daniels DO Scribvazquez Attestation: Santos Gaspar scribed for See Daniels DO on 05/31/19 at 2100. Scribe Documentation Reviewed: Yes Provider Attestation: The documentation as recorded by the Santos molina accurately reflects the service I personally performed and the decisions made by See pretty DO Status of Scribe Document: Viewed
[2019-05-31 17:08] LABS: ALT 14 U/L (7-52); AST 13 U/L (13-39); Albumin 4.8 g/dL (3.2-5.2); Albumin/Globulin Ratio 1.9 (1-3); Alkaline Phosphatase 63 U/L (34-104); Anion Gap 6 mmol/L (2-11); BUN/Creatinine Ratio 8.5 (8-20); Blood Urea Nitrogen 10 mg/dL (6-24); CO2 Carbon Dioxide 28 mmol/L (22-32); Calcium 9.7 mg/dL (8.6-10.3); Chloride 103 mmol/L (101-111); EGFR African American 89.6 (>60); Globulin 2.5 g/dL (2-4); Glucose 94 mg/dL (70-100); Sodium 137 mmol/L (135-145); Total Protein 7.3 g/dL (6.4-8.9)
[2019-05-31 18:53] VITALS: BP 149/91
== END 2019-05-31 18:50 | disposition home or self-care (01) ==
LOC: ED 13:22
DX: R10.13 Epigastric pain (principal); R10.11 Right upper quadrant pain; K21.9 Gastro-esophageal reflux disease without esophagitis; Z90.49 Acquired absence of other specified parts of digestive tract; Z88.1 Allergy status to other antibiotic agents; Z88.2 Allergy status to sulfonamides; F17.210 Nicotine dependence, cigarettes, uncomplicated
CPT/HCPCS: 36415; 76705; 80053; 83690; 85025; 96361; 96374; 99282; J1885

== ENCOUNTER 2019-07-25 09:39 | Emergency (ER) | payer SELFPAY ==
--- OUTSIDE RECORDS SUMMARY | 2019-07-25 09:47 | XMS REPORT | Summary of Care ---
:1990 Author Organization [facility] Address [address] [place] [address] Care Team Providers Name Role Phone Kayce Colon MD Primary Care Provider Reason for Visit Reason Comments Follow Up ulta sound results 05/30/19, pt complians of feeling like has had a fever for over a month, pt complains of being very tired Encounter Details Date Type Department Care Team Description 06/26/2019 Office Visit [facility] Darlene, Benign hypertension ( Primary Dx); Practice Kayce Robert MD Anxiety and depression; [address] RUQ pain; [place] [address] [place] [address] Anal itching [phone] Allergies Active Allergy Reactions Severity Noted Date Comments Erythromycin Respiratory Reaction 06/03/2016 Pediazole Respiratory Reaction 06/03/2016 documented as of this encounter (statuses as of 06/26/2019) Medications Medication Sig Dispensed Refills Start Date End Date Status ondansetron Take 4 mg by 18 Tab 0 09/26/2016 Active (ZOFRAN) 4 MG Oral mouth EVERY TabIndications: EIGHT HOURS Tonsillar NEEDED for hypertrophy nausea. Acetaminophen Take 500 mg by 0 Active (TYLENOL EXTRA mouth EVERY STRENGTH FOUR HOURS PO)Indications: NEEDED. Pain Indications: Pain ALBUTEROL SULFATE Take 2 Puffs by 0 Active INIndications: inhalation Dyspnea EVERY FOUR HOURS NEEDED. Indications: Difficulty Breathing Psyllium Take 1 Packet 30 Each 3 01/13/2019 Active (METAMUCIL FIBER) by mouth DAILY. 51.7 % Oral PackIndications: Diarrhea, unspecified type buPROPion XL Take 1 Tab by 30 Tab 11 01/24/2019 Active (WELLBUTRIN XL) mouth DAILY. 150 MG Oral TABLET SR 24 HR 24 hour tabletIndications: Anxiety and depression methocarbamol Take 1 Tab by 60 Tab 0 02/17/2019 Active (ROBAXIN) 500 MG mouth THREE Oral Tab TIMES DAILY. pantoprazole TAKE 1 TABLET 90 Tab 3 04/20/2019 Active (PROTONIX) 40 MG BY MOUTH EVERY Oral Tab EC DAY hyoscyamine Take 0.375 mg 60 Tab 0 05/16/2019 Active (LEVBID) 0.375 MG by mouth EVERY Oral TABLET SR 12 TWELVE HOURS. HR ALPRAZolam (XANAX) Take 1 Tab by 90 Tab 0 06/26/2019 Active 0.5 MG Oral mouth THREE TabIndications: TIMES DAILY Anxiety and NEEDED depression (anxiety). Max Daily Amount: 1.5 mg. Fill after 08/24/18 amLodipine Take 1 Tab by 30 Tab 11 06/26/2019 Active (NORVASC) 5 MG mouth DAILY. Oral TabIndications: Benign hypertension amLodipine Take 1 Tab by 30 Tab 11 11/29/2018 06/26/19 Discontinued (NORVASC) 5 MG mouth DAILY. 20 (Reorder) Oral Tab ALPRAZolam (XANAX) Take 1 Tab by 90 Tab 0 05/25/2019 06/26/19 Discontinued 0.5 MG Oral mouth THREE 20 (Reorder) TabIndications: TIMES DAILY Anxiety and NEEDED depression (anxiety). Max Daily Amount: 1.5 mg. Fill after 08/24/18 documented as of this encounter (statuses as of 06/26/2019) Active Problems Problem Noted Date Periumbilical abdominal pain 02/06/2019 Overview: Added automatically from request for surgery [id number] Umbilical hernia without obstruction and without gangrene 02/06/2019 Overview: Added automatically from request for surgery [id number] Upper abdominal pain 11/09/2018 Overview: Added automatically from request for surgery [id number] Symptomatic cholelithiasis 11/09/2018 Overview: Added automatically from request for surgery [id number] Benign hypertension 08/12/2018 Hx of Clostridium difficile infection 11/04/2017 Anxiety disorder 08/14/2016 Arthralgia of lower leg 05/26/2016 Gastric ulcer 05/17/2014 GERD (gastroesophageal reflux disease) documented as of this encounter (statuses as of 06/26/2019) Resolved Problems Problem Noted Date Resolved Date Sprain of ankle 05/26/2016 09/27/2017 Arthralgia of foot 05/26/2016 09/27/2017 documented as of this encounter (statuses as of 06/26/2019) Social History Tobacco Use Types Packs/Day Years [...] week 2018 How often do you attend zoroastrianism or worship services? Never 08/03/2018 Do you belong to any clubs or organizations such as zoroastrianism No 08/03/2018 groups, unions, fraternal or athletic [...] Sign Reading Time Taken Comments Blood Pressure 150/80 06/26/2019 3:39 PM EST Pulse 82 06/26/2019 3:39 PM EST Temperature 37.8 06/26/2019 3:39 PM EST C (100 F) Respiratory Rate - - Oxygen Saturation 99% 06/26/2019 3:39 PM EST Inhaled Oxygen Concentration - - Weight 81.6 kg (180 lb) 06/26/2019 3:39 PM EST Height 177.8 cm (5' 10") 06/26/2019 3:39 PM EST Body Mass Index 25.83 06/26/2019 3:39 PM EST documented in this encounter Patient Instructions Patient InstructionsKayce Colon MD - 06/26/2019 3:40 PM ESTFor anal itching, wipe gently and try over the counter Preperation-H with hydrocortisone as needed. Continue current medications. Please get your amlodipine refilled and resume it. We will see what gastroenterology in [place] finds for you. documented in this encounter Progress Notes Kayce Colon MD - 06/26/2019 3:40 PM EST Nursing Notes: Juany Andre, PROFESSIONAL FIGHTER 06/26/2019 3:57 PM Signed Chief Complaint Patient presents with Follow Up ulta sound results 05/30/19, pt complians of feeling like has had a fever for over a month, pt complains of being very tired Molding Technician: Dr Rashid Urologist: Dr Smith Chief Complaint: Jaspal De La Rosa is a 28-y.o. male who presents for anxiety and hypertension recheck. History of Present Illness/ROS: Hypertension: Patient did not tolerate lisinopril (cough, 24/7 nausea, headache dizzy and running to the restroomevery hour), so we switched to amlodipine. He is tolerating it well. He ran out and [facility] did not fill. GI: Patient has chronic abdominal discomfort for which he has seen gastroenterology and general surgery. He was seem in [facility] ER 05/31/2019: laboratory tests normal, abdominal ultrasound normal He also had an abdominal ultrasound here 05/30/2019 essentially negative. He saw gastroenterology here for his GERD 08/03/18 and they continued pantoprazole. He saw gastroenterology at [facility] 06/07/[address] enterography was ordered. EGD was ordered, plans a transesoph ultrasound. He had a laparoscopic cholecystectomy 11/10/[address] Collado in [facility]. He was awakening with some epigastric pain since. Improved getting up. No emesis, no nausea, diarrhea, bloody or black stool. He had his umbilical incisional hernia repaired 02/08/19 He still has intermittent epigastric pain. No triggers. CT abdomen/pelvis 01/10/2019: IMPRESSION Post interval cholecystectomy. Skin thickening around the small stable central ventral umbilical hernia with fat only He gets esophogeal spasm, sharp pain about 3 times a day. Gastroenterology gave him an anti spasm med but it was sedating to him. Anxiety: He has anxiety. Is more down in winter. He takes alprazolam tid in winter. He felt odd on bupropion 300mg in past,but does ok on 150 mg daily. He would like to stay on current medications. Denies suicidal or homicidal ideation. His swollen LN from 07/04/[address] scan was negative. However he was seen with an acute upper respiratory infection and lymphadenopathy in early June. He had an ENT appointment 08/18/18. No mass found. Chest xray was normal Review of Systems - General ROS: negative for - chills or fever, night sweats, unexpected weight changes ENT ROS: negative for - headaches, nasal congestion, sore throat Respiratory ROS: negative for - cough, shortness of breath Cardiovascular ROS: negative for - dyspnea on exertion, edema or palpitations; he does get mid-presumed esophogeal pain, sharp, last s 10 minutes. EGD is planned Gastrointestinal ROS: he has chronic recurrent right upper quadrant pain, no change in bowel habits Anxiety: Fair, a bit worse starting a new job but he is adjusting. Office Visit on 05/30/2019 Component Date Value Ref Range Status URINE GLUCOSE (POCT) 05/30/2019 Negative Negative mg/dl Final URINE BILIRUBIN (POCT) 05/30/2019 Negative Negative Final Urine Ketones (POCT) 05/30/2019 Negative Negative Final URINE SPECIFIC GRAVITY (POCT) 05/30/2019 1.005 1.005 - 1.030 Final URINE BLOOD (POCT) 05/30/2019 Negative Negative Final URINE PH (POCT) 05/30/2019 7.5 5.0 - 8.0 Final URINE PROTEIN (POCT) 05/30/2019 Negative Negative mg/dl Final URINE UROBILINOGEN (POCT) 05/30/2019 0.2 0.2 - 1.0 mg/dl Final URINE NITRITES (POCT) 05/30/2019 Negative Negative Final URINE LEUKOCYTES (POCT) 05/30/2019 Negative Negative Cells/uL Final WBC Count 05/30/2019 8.38 4.23 - 9.07 K/uL Final RBC Count 05/30/2019 5.63 4.30 - 5.89 M/UL Final Hemoglobin 05/30/2019 15.4 13.7 - 17.5 g/dL Final Hematocrit 05/30/2019 48.6 40.1 - 51.0 % Final MCV 05/30/2019 86.3 79.0 - 92.2 FL Final MCH 05/30/2019 27.4 25.7 - 32.2 PG Final MCHC 05/30/2019 31.7* 32.3 - 36.5 g/dL Final Platelet Count 05/30/2019 244 163 - 337 K/uL Final MPV 05/30/2019 10.7 9.4 - 12.4 FL Final RDW 05/30/2019 12.4 11.6 - 14.4 % Final Neutrophil % 05/30/2019 68.6* 34.0 - 67.9 % Final Lymphocyte % 05/30/2019 23.5 21.8 - 53.1 % Final Monocyte % 05/30/2019 5.8 5.3 - 12.2 % Final Eosinophil % 05/30/2019 1.1 0.8 - 7.0 % Final Basophil % 05/30/2019 0.6 0.2 - 1.2 % Final nRBC % 05/30/2019 0.0 0.0 - 0.2 % Final Neutrophil # 05/30/2019 5.75* 1.78 - 5.38 K/UL Final Lymphocyte # 05/30/2019 1.97 1.32 - 3.57 K/UL Final Monocyte # 05/30/2019 0.49 0.30 - 0.82 K/UL Final Eosinophil # 05/30/2019 0.09 0.04 - 0.54 K/UL Final Basophil # 05/30/2019 0.05 0.01 - 0.08 K/UL Final Immature Gran % 05/30/2019 0.4 0.0 - 0.4 % Final Immature Gran # 05/30/2019 0.03 0.00 - 0.03 K/uL Final NRBC # 05/30/2019 0.00 0.00 - 0.12 K/uL Final Sodium 05/30/2019 139 134 - 145 mmol/L Final Potassium 05/30/2019 3.7 3.5 - 5.1 mmol/L Final Chloride 05/30/2019 102 98 - 107 mmol/L Final CO2 05/30/2019 27 22 - 30 mmol/L Final Calcium 05/30/2019 9.6 8.3 - 10.1 mg/dl Final Albumin 05/30/2019 4.6 3.5 - 5.0 g/dl Final BUN 05/30/2019 13 9 - 20 mg/dl Final Creatinine 05/30/2019 1.1 0.8 - 1.5 mg/dl Final Glucose 05/30/2019 96 70 - 99 mg/dl Final Total Protein 05/30/2019 7.9 6.3 - 8.2 g/dl Final Total Bilirubin 05/30/2019 0.8 0.0 - 1.1 MG/DL Final AST 05/30/2019 23 17 - 59 U/L Final ALT 05/30/2019 20* 21 - 72 U/L Final Alkaline Phosphatase 05/30/2019 63 40 - 150 U/L Final eGFR 05/30/2019 >60 See Interpretation Below ml/min/1.73ml Sq Final Estimated GFR Interpretation: Above 60ml/min/1.73m2 = Normal Renal Function 30-59 ml/min/1.73m2 = Stage 3 Chronic Kidney Disease 15-29 ml/min/1.73m2 = Stage 4 Chronic Kidney Disease Less than 15 ml/min/1.73m2 = Stage 5 Chronic Kidney Disease The GFR value is calculated using the Modification of Diet in Renal Disease ( MDRD) Study Equation which can be found at: https://www.kidney.org/content/bvuo-gwekn-zdighkwd BUN/Creatinine Ratio 05/30/2019 12 6 - 22 RATIO Final Anion Gap 05/30/2019 10 3 - 11 mmol/L Final A/G Ratio 05/30/2019 1.4 0.8 - 2.0 ratio Final Lab Results Component Value Date NA 139 05/30/2019 K 3.7 05/30/2019 CL 102 05/30/2019 CO2 27 05/30/2019 GLUCOSE 96 05/30/2019 BUN 13 05/30/2019 CREATININE 1.1 05/30/2019 CALCIUM 9.6 05/30/2019 TP 7.9 05/30/2019 ALBUMIN 4.6 05/30/2019 AST 23 05/30/2019 ALT 20 (L) 05/30/2019 ALK 63 05/30/2019 TBILI 0.8 05/30/2019 EGFR >60 05/30/2019 CT neck 03/29/18: IMPRESSION: Normal CT of the neck soft tissues with contrast. No soft tissue mass or adenopathy, with particular attention to the left anterior supraclavicular neck region. Urgency: Routine. This is a routine medical imaging report. Recommendation: No specific imaging recommendation. Neck ultrasound 03/08/18: IMPRESSION: No sonographic evidence of suspicious mass or abnormal fluid collections in the left supraclavicular region within limitations of ultrasound modality. No abnormal vascular flow. Incidental note of a small benign-appearing left supraclavicular lymph node that measures 0.4 cm in short axis and contains a normal fatty hilum. US ABDOMEN LIMITED Narrative: Procedure(s): US ABDOMEN LIMITED Date of service: 05/30/2019 3:10 PM Provided clinical information: 28 years, Male, "RUQ pain, no fever, no elevated WBC" Procedure and materials: Standard protocol. Comparison studies: 01/10/2019. Observations: Liver: Echotexture: Background echotexture is normal. There is an area of irregular increased echogenicity in the gallbladder fossa. There is some shadowing likely adjacent bowel. Correlating with prior CT duodenum and colon where in this facility. Masses: None Ducts: Normal CBD: 4 mm. Normal. Gallbladder: Absent. Pancreas: Limited visualization due to bowel gas. Right kidney: 10 x 4 x 5 cm. Echogenicity appeared within normal limits. No cystic or solid masses were noted. No hydronephrosis. No definite calcifications. Impression: No definite acute findings status post cholecystectomy. Some irregular echogenicity is seen adjacent to the gallbladder fossa which is of unclear etiology but likely represents adjacent bowel. Consider CT as clinically warranted. Urgency: Routine. This is a routine medical imaging report. Recommendation: As above. Signed by Tariq Llamas MD on 06/07/2019 4:59 PM Past Medical History: Diagnosis Date Anxiety dx age 20 Asthma as child Depression Gastric ulcer 2014 GERD (gastroesophageal reflux disease) Hx of Clostridium difficile infection Hypertension Mental disorder severe anxiety with panic attacks Past Surgical History: Procedure Laterality Date EGD 2014 HERNIORRHAPHY, UMBILICAL N/A 02/08/2019 Procedure: iINCISIONAL HERNIA REPAIR WITH MESH; Surgeon: Jose Ramon Barahona MD; Location: [facility] MAIN OR LAPAROSCOPIC CHOLECYSTECTOMY N/A 11/10/2018 Procedure: LAPAROSCOPIC CHOLECYSTECTOMY; Surgeon: Fernando Collado MD; Location: MAIN OR VT EXCIS SPERMATOCELE Right 10/19/2017 Procedure: SPERMATOCELECTOMY; Surgeon: Lon Smith MD; Location : MAIN OR Current Outpatient Medications: Acetaminophen (TYLENOL EXTRA STRENGTH PO), Take 500 mg by mouth EVERY FOUR HOURS NEEDED.Indications: Pain, Disp: , Rfl: ALBUTEROL SULFATE IN, Take 2 Puffs by inhalation EVERY FOUR HOURS NEEDED. Indications: Difficulty Breathing, Disp: , Rfl: ALPRAZolam (XANAX) 0.5 MG Oral Tab, Take 1 Tab by mouth THREE TIMES DAILY NEEDED (anxiety). Max Daily Amount: 1.5 mg. Fill after 08/24/18, Disp: 90 Tab, Rfl: 0 amLodipine (NORVASC) 5 MG Oral Tab, Take 1 Tab by mouth DAILY., Disp: 30 Tab, Rfl: 11 buPROPion XL (WELLBUTRIN XL) 150 MG Oral TABLET SR 24 HR 24 hour tablet , Take 1 Tab by mouthDAILY., Disp: 30 Tab, Rfl: 11 hyoscyamine (LEVBID) 0.375 MG Oral TABLET SR 12 HR, Take 0.375 mg by mouth EVERY TWELVE HOURS., Disp: 60 Tab, Rfl: 0 methocarbamol (ROBAXIN) 500 MG Oral Tab, Take 1 Tab by mouth THREE TIMES DAILY., Disp: 60 Tab, Rfl: 0 ondansetron (ZOFRAN) 4 MG Oral Tab, Take 4 mg by mouth EVERY EIGHT HOURS NEEDED for nausea., Disp: 18 Tab, Rfl: 0 pantoprazole (PROTONIX) 40 MG Oral Tab EC, TAKE 1 TABLET BY MOUTH EVERY DAY, Disp: 90 Tab, Rfl: 3 Psyllium (METAMUCIL FIBER) 51.7 % Oral Pack, Take 1 Packet by mouth DAILY., Disp: 30 Each, Rfl: 3 Allergies Allergen Reactions Erythromycin Respiratory Reaction Pediazole [...] week Gets together: Once a week Attends worship service: Never Active member of club or [...] Not Asked Social History Narrative Lives in [place]. Works at [employer], Mak[employer] keeping. Does own business on the side: contstruction Family History Problem Relation Age of Onset Thyroid Mother Arthritis Mother No Known Problems Sister GI Brother Psychiatry Brother No Known Problems Brother No Known Problems Brother PHYSICAL EXAMINATION: BP (!) 150/80 | Pulse 82 | Temp 100 F (37.8 C) | Ht 5' 10" (1.778 m) | Wt 180 lb (81.6 kg) | SpO2 99% | BMI 25.83 kg/m Physical Examination: General appearance - alert, well appearing, and in no distress Mental status - alert, oriented to person, place, and time, normal mood, behavior, speech, dress, motor activity, and thought processes Eyes - pupils equal, sclera anicteric Neck - supple, no cervical or supraclavicular adenopathy, carotids upstroke normal bilaterally, no bruits, thyroid exam: thyroid is normal in size without nodules or tenderness, no neck masses palpated. Chest/Lungs - clear to auscultation, no wheezes, rales or rhonchi, symmetric air entry, good aeration Heart - normal rate, regular rhythm, normal S1, S2, no murmurs, rubs, clicks or gallops Abdomen - soft, non tender on palpation, nondistended, no masses or hepatosplenomegaly, bowel soundsnormal, normal to percussion, no guarding or rebound. Surgical sites are healing well. Neurological - alert, oriented, normal speech, no gross focal findings or movement disorder noted Extremities - dorsalis pedis pulses normal, no pedal edema, no clubbing or cyanosis ASSESSMENT/PLAN: ICD-9-CM ICD-10-CM 1. Benign hypertension 401.1 I10 amLodipine (NORVASC) 5 MG Oral Tab 2. Anxiety and depression 300.00 F41.9 ALPRAZolam (XANAX) 0.5 MG Oral Tab 311 F32.9 3. RUQ pain 789.01 R10.11 4. Anal itching 698.0 L29.0 Hypertension control is worse off amlodipine-- please resume. You should have had enough refills until November. Prescription sent to refill anyway. Anxiety and depression are fairly controlled on current medications. He still has transient intermittent upper abdominal sharp pain like a spasm, gone within minutes. Itis tolerable. He is seeing gastroenterology in [place] for further evaluation. Low carb diet recommended. At the end of the visit he also complained of anal itching Patient Instructions For anal itching, wipe gently and try over the counter Preperation-H with hydrocortisone as needed. Continue current medications. Please get your amlodipine refilled and resume it. We will see what gastroenterology in [place] finds for you. Follow up 3 months. Author: Kayce Colon MD 06/26/2019 16:53 documented in this encounter Plan of Treatment Health Maintenance Due Date Last Done Comments PNEUMOCOCCAL 0-64 YRS (1 of - 11/16/1997 PPSV23) DTaP/Tdap/Td Vaccines (1 - [...] Type Problems Progress Blood Pressure Blood Pressure 150/80 No Renetta, < 140/90 (06/26/2019 CAMILA Medina 3:39 PM EST) Note: This is an individualized treatment (blood pressure) goal for Jaspal Osborneoney: Displayed above (on the left) is your [...] of this encounter Implants Implanted Type Area Chain Splitter Device Identifier Shelf Expiration Model / Date Serial / Lot Ventralex St Mesh 4.3 X 4.3 - [id number] [employer] 10/11/2020 [id number] / Implanted: Qty: 1 on 02/08/2019 by Jose Ramon Barahona MD at [facility] / [id number] documented as of this encounter Results Not on filedocumented in this encounter Visit Diagnoses Diagnosis Anxiety and depression Dysthymic disorder Benign hypertension Essential hypertension, benign RUQ pain Abdominal pain, right upper quadrant Anal itching Pruritus ani documented in this encounter Insurance Payer Benefit Plan / Subscriber ID Effective Dates Phone Address Type Group [employer] xxxxxxxxxxxx 2017-Present [employer] (Home) [place] [phone] [place], [place] (Work) [id number] documented as of this encounter Advance Directives Code Status Date Activated Date Inactivated Comments Full Code 10/19/2017 1:30 PM 10/19/2017 5:18 PM Does patient have decision making capacity? Yes
[2019-07-25] MEDS ORDERED: HYDROcodone/ACETAMIN 5-325 MG* 1 TAB PO ONE (12:51)
[2019-07-25 13:20] VITALS: BP 149/85
--- NOTE | 2019-07-25 14:04 | UC ---
Lower Extremity/Ankle HPI - HPI Summary HPI Summary: Rolled R ankle / foot at work today apprx 7am. Unable to bear weight. Hx ankle injury remote past R foot caught under a metal object at work, rolling ankle. In the process of falling, the R ant tib struck against a metal object as well. 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 - History of Current Complaint Chief Complaint: UCLowerExtremity Stated Complaint: RIGHT ANKLE PAIN Time Seen by Provider: 07/25/19 12:40 Hx Obtained From: Patient Pain Intensity: 6 - Allergies/Home Medications Allergies/Adverse Reactions: Allergies Allergy/AdvReac Type Severity Reaction Status Date / Time erythromycin base Allergy Hives Verified 07/25/19 10:08 sulfisoxazole Allergy Hives Verified 07/25/19 10:08 [From Pediazole] Home Medications: Home Medications Bupropion XL* [Wellbutrin XL *] 150 mg PO DAILY 12/09/16 [History Confirmed 03/05] ALPRAZolam TAB* [Xanax TAB*] 0.5 mg PO TID PRN 05/31/19 [History Confirmed 07/24] Acetaminophen [Tylenol Extra Strength] 500 mg PO Q6HR PRN 05/31/19 [History Confirmed 07/25/19] Hyoscyamine ER (NF) [Levbid (NF)] 0.375 mg PO Q12HR 05/31/19 [History Confirmed 07/25/19] Pantoprazole TAB * [Protonix TAB*] 40 mg PO DAILY 05/31/19 [History Confirmed ] HYDROcodone/ACETAMIN 5-325 MG* [[place] 5-325 TAB*] 2 tab PO Q8H PRN #18 tab MDD 6 07/25/19 [Rx] Ibuprofen TAB* [Motrin TAB* 600 MG] 600 mg PO Q8H PRN #30 tab 07/25/19 [Rx] PMH/Surg Hx/FS Hx/Imm Hx Previously Healthy: Yes - see hpi - Surgical History Surgical History: Yes Surgery Procedure, Year, and Place: [facility] and hernia - Family History Known Family History: Positive: Hypertension Negative: Cardiac Disease, Diabetes - Social History Alcohol Use: None Alcohol Amount: none since May 17 2013 Substance Use Type: None Smoking Status (MU): Light Every Day Tobacco Smoker Type: Cigarettes, Smokeless Tobacco Amount Used/How Often: 1/2 PPD Household Exposure Type: Cigarettes - Immunization History Most Recent Tetanus Shot: JUN 2013 Review of Systems All Other Systems Reviewed And Are Negative: Yes Constitutional: Positive: Negative Skin: Positive: Other - swelling Eyes: Positive: Negative ENT: Positive: Negative Respiratory: Positive: Negative Cardiovascular: Positive: Negative Gastrointestinal: Positive: Negative Genitourinary: Positive: Negative Motor: Positive: Other - see hpi Neurovascular: Positive: Negative Musculoskeletal: Positive: Arthralgia Neurological/Mental Status: Positive: Negative Psychological: Positive: Negative Is Patient Immunocompromised?: No Physical Exam Triage Information Reviewed: Yes Appearance: Well-Nourished - sitting up looks uncomfortable but nad Vital Signs: Initial Vital Signs Temp 98 F 07/25/19 10:04 Pulse 90 07/25/19 10:04 Resp 17 07/25/19 10:04 BP 146/106 07/25/19 10:04 Pulse Ox 100 07/25/19 10:04 Vital Signs Reviewed: Yes Eye Exam: Normal ENT Exam: Normal Neck exam: Normal Neck: Positive: Nontender Respiratory Exam: Normal Respiratory: Positive: No respiratory distress, No accessory muscle use Cardiovascular Exam: Normal Cardiovascular: Positive: Brisk Capillary Refill Abdominal Exam: Normal Abdomen Description: Positive: Nontender Musculoskeletal Exam: Other - R lat mal ++ swelling. Foot warm to touch. Distal sens + LT. Tender R lat mal and R 4th metatarsal R mid low ant tib + eccymosis (not hematoma) Neurological Exam: Normal Psychological Exam: Normal - nad Skin Exam: Normal - see [place]olina mathias o/w nad Lower Extremity Course/Dx - Course Course Of Treatment: Reviewed xray report with pt see [facility] Reviewed T-F, R ankle, R foot Reviewed coa / tx plan Questions as posed answered to the best of my ability. - Differential Dx/Diagnosis Provider Diagnosis: Ankle sprain Discharge ED - Sign-Out/Discharge Documenting (check all that apply): Patient Departure All imaging exams completed and their final reports reviewed: Yes - Discharge Plan Condition: Stable Disposition: HOME Patient Education Materials: Ankle Sprain (ED) Forms: *Work Release Referrals: Kayce Colon MD [Primary Care Provider] - Genoveva Basilio MD [Medical Doctor] - Additional Instructions: Crutches. Non-weightbearing until ok by orthopedic doctor. Follow up orthopedic doctor this week if possible. Please seek medical attention for worse or new problems in the meantime. - Billing Disposition and Condition Condition: STABLE Disposition: Home
== END 2019-07-25 14:47 | disposition home or self-care (01) ==
LOC: UCEAST 09:39
DX: S93.401A Sprain of unspecified ligament of right ankle, initial encounter (principal); F17.210 Nicotine dependence, cigarettes, uncomplicated; Z88.1 Allergy status to other antibiotic agents; Z88.2 Allergy status to sulfonamides; X50.9XXA Other and unspecified overexertion or strenuous movements or postures, initial encounter; Y92.9 Unspecified place or not applicable; Y99.0 Civilian activity done for income or pay
CPT/HCPCS: 99212; G0463